=== PATIENT | female | born 1985 | race Caucasian/White ===

== ENCOUNTER 2019-01-29 05:23 | Observation (INO) ==
[2019-01-29] MEDS ORDERED: NORMAL SALINE 1,000 ML IV ONE ×2 (05:57→07:13)
[2019-01-29 06:00] LABS: Hematocrit 40.1 % (37.0-47.0); Hemoglobin 13.8 gm/dL (12.5-16.0); Mean Cell Volume 98.5 fl (78-100); Mean Corpuscular Hemoglobin 33.9 pg (27-31); Mean Corpuscular Hgb Conc 34.4 g/dl (32-36); Mean Platelet Volume 11.5 fl (8-12.5); Neutrophil # 5.6 K/mm3 (1.3-6.0); Neutrophil % 62.9 % (42-75.0); Platelet Count 204 K/mm3 (150-450); Red Blood Count 4.07 M/mm3 (4.2-5.4); Red Cell Distribution Width 12.9 % (11.5-14.0); White Blood Count 8.9 K/mm3 (4.0-10.5)
[2019-01-29 06:01] LABS: Urine Bilirubin Negative (NEGATIVE); Urine Blood Negative /ul (NEGATIVE); Urine Ketone Negative (NEGATIVE); Urine Nitrite Negative (NEGATIVE); Urine Protein Negative (NEGATIVE); Urine Specific Gravity 1.015 SP.GR. (1.005-1.010); Urine Urobilinogen Normal (NORMAL)
[2019-01-29 06:11] LABS: Urine Amorphous Sediment Few - 1+ (NONE-FEW); Urine Appearance Slightly Cloudy (CLEAR); Urine Bacteria None Seen; Urine Color Yellow; Urine RBC None Seen /hpf (0-5); Urine WBC None Seen /hpf (0-5)
[2019-01-29 06:15] LABS: Cocaine Ur Negative (NEGATIVE); Urine Barbiturate Negative (NEGATIVE); Urine Opiates Negative (NEGATIVE); Urine PCP Negative (NEGATIVE); Urine THC Negative (NEGATIVE)
[2019-01-29 06:16] LABS: Albumin * 3.6 gm/dl (3.4-5.0); BUN/Creatinine Ratio 18.3 (9.0-21.6); Bilirubin, Total 0.2 mg/dL (0.0-1.1); Ca. Corrected For Albumin 8.5 mg/dL (8.4-10.2); Calcium * 8.5 mg/dL (7.9-10.9); Carbon Dioxide 25.6 mmol/L (24-32.6); Potassium 3.6 mmol/L (3.4-4.6); Total Protein 6.5 gm/dL (6.2-8.2)
[2019-01-29 06:19] LABS: Urine Benzodiazepines Positive (NEGATIVE)
--- NOTE | 2019-01-29 06:34 | ERNOTE ---
Medical Problem HPI - Narrative Date of Service: 01/29/19 - General Chief Complaint: Drug Overdose Time Seen by Provider: 01/29/19 05:25 Source: patient, family Exam Limitations: clinical condition - Immun/Allergies/Home Medications Immunizations: IMMUNIZATION HX Immunizations Up to Date Yes History of Influenza Vaccine No Hx Pneumococcal Vaccination No Allergies/Adverse Reactions: Allergies banana Allergy (Severe, Verified 01/29/19 05:33) Anaphylaxis venom-honey bee Allergy (Severe, Verified 01/29/19 05:33) Anaphylaxis venom-wasp Allergy (Severe, Verified 01/29/19 05:33) Anaphylaxis latex Allergy (Verified 01/29/19 05:33) Hives Home Medications: HOME MEDICATIONS EPINEPHrine [Epipen 2-Osmani] 0.3 mg IM ONCE PRN #2 dis.syr 08/17/18 [Last Taken Unknown] alprazolam 0.25 mg tablet 0.25 mg PO BID PRN #45 tab 12/05/18 [Last Taken Unknown] mirtazapine 15 mg tablet 15 mg PO HS #30 tab 12/05/18 [Last Taken Unknown] multivitamin 1 tab PO DAILY 12/05/18 [Last Taken Unknown] - History of Present History Narrative: 33-year-old female with a recent past medical history of stage II breast cancer presents for benzodiazepine overdose. Patient took approximately 30 tabs of 0.25 mg Xanax is approximately an hour and half prior to presenting to the emergency department. She had 2 episodes of vomiting after taking the medication. She was brought in by her boyfriend. Initially 911 was called EMS responded and patient was AMA to self transport. Patient stated that she does not have wishes to kill herself but wants her stress to go away. Since taking medication she feels very sleepy. Her boyfriend at bedside states that she has been under increased emotional stress after her recent treatment for breast cancer. Regarding her breast cancer, she states that she was initially treated with chemotherapy unsuccessfully, care plan was transitioned to radiation therapy and then back to chemotherapy. Date (Duration): 01/29/19 Time (Timing): 06:00 Timing: constant Severity: severe Review of Systems - Narrative Narrative: Unobtainable due to patient's condition. Medical History (Last Reviewed 01/29/19 @ 06:02 by Jevon Sanchez MD) Masses of both breasts (Resolved) Onset Date: ~2016 Tobacco abuse Onset Date: 07/14/15 Placental abruption, with delivery Onset Date: 2005 resulting in classical emergency section delivery Onset Date: 2005 Surgical History: Surgical History (Last Reviewed 01/29/19 @ 06:02 by Jevon Sanchez MD) H/O breast surgery Onset Date: ~2016 mass on each breast removed Previous section Onset Date: 2005 x5 Family History: Family History (Last Reviewed 01/29/19 @ 06:02 by Jevon Sanchez MD) Daughter , 18 months old Sudden infant syndrome (SIDS) Social History: (Last Reviewed 01/29/19 @ 06:02 by Jevon Sanchez MD) Social History: Marital status: household members: children number of children: 5 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 Highest education level completed: some college, no degree Service: No Tobacco: Smoking Status: Current every day smoker tobacco type: cigarettes Smoking cigarettes per day: 10.0 Smoking packs per day: 0.5 Alcohol: alcohol intake: current Substance Use: substance use type: does not use Dietary Habits: caffeine: Yes Exercise: Physical activity type: none Personal Safety: victim of physical abuse: No victim of emotional abuse: No victim of sexual abuse: No Physical Exam - Physical Exam General Appearance: Present: lethargic Head Exam: Present: normal inspection Eye Exam: PERRL: bilateral Ears, Nose, Throat: Present: normal ENT inspection Neck: Present: nontender Respiratory: Present: no respiratory distress, normal breath sounds, chest nontender, lungs clear Cardiovascular/Chest: Present: regular rate, rhythm, no murmur Gastrointestinal/Abdominal: Present: normal bowel sounds, nontender Rectal Exam: Present: deferred Pelvic Exam: Present: deferred Extremity Exam: Present: normal inspection Neurological Exam: Present: other - Lethargic Skin Exam: Present: normal color, warm/dry Progress - Results and Orders Patient's Lab Results:: I have reviewed the patient's lab results. - Vital Signs Patient's Vital Signs:: I have reviewed the patient's vital signs. Vital Signs: Vital Signs 01/29/19 05:29 Temperature 36.7 C Pulse Rate 84 Respiratory Rate 16 Blood Pressure 109/72 O2 Sat by Pulse Oximetry 98 - Progress/Reassessment Chief Complaint: Drug Overdose Progress:: Unchanged - Transfer of Care Expected Disposition: Admit Plan - Plan Plan: 33-year-old female presents status post benzodiazepine overdose with Xanax. Patient consumed approximately 7.5 mg of Xanax approximately an hour and a half prior to arrival. She did end up vomiting and unknown quantity after ingesting this. Patient denies active suicidal ideations however given her concerning actions she will need to be evaluated further by mental health when she is medically stable. She is currently protecting her airway is hemodynamically stable. Poison control was consulted by balance staff inspector. IV fluids were started, 500 cc normal saline bolus followed by 125 cc/h. Patient placed on observation unit for further monitoring for resolution of her symptoms. Departure Clinical Impression: Drug overdose, intentional Qualifiers: Encounter type: initial encounter Qualified Code(s): T50.902A - Poisoning by unspecified drugs, medicaments and biological substances, intentional self-harm, initial encounter - Departure Disposition: Still a patient Condition: Stable Referrals: Rosaura Hemphill MD [Primary Care Provider] -
[2019-01-29] MEDS ORDERED: FLUMAZENIL 0.1 MG/ML VIAL IV ONE ×3 (10:56→12:40)
[2019-01-29] MEDS ORDERED: NORMAL SALINE 1,000 ML IV PRN (11:07)
[2019-01-29] MEDS ORDERED: NICOTINE 21 MG PATC TD SCH (11:15)
--- NOTE | 2019-01-29 11:26 | HP ---
Chief Complaint - Chief Complaint Date of Service: 01/29/19 Time of Service: 11:11 Chief Complaint: I took many Xanax because of stress but I am not suicidal History of Present Illness: 33-year-old female with past medical history of depression, nicotine dependence, active smoker, anxiety disorder, and breast cancer was evaluated in the ER after she was brought in by EMS after the patient took a significant amount of her Xanax. Patient boyfriend reports that is possible that she took between 30 and 40 pills, but he is not sure. He says all he knows is she brought him an empty pill bottle that previously had more than 30 pills and said that she took all of them. The boyfriend then made her go to the bathroom and induce vomiting by sticking her finger down her throat, patient did vomit and the boyfriend noticed white substances which most likely was the dissolved pills however he was still concerned so he called 911. Prior to this the boyfriend reports that the patient has been increasingly depressed because she is been dealing with a lot of stressors in her life, one being an infant that of SIDS and a diagnosis of bilateral breast cancer that failed to chemo and is now being treated with radiation. He he says that he does not think that she is suicidal or would ever take her life, she has just been under a lot of stress. When patient arrived at the ER she was heavily sedated but maintaining her airway and stable vitals. The physician on-call was consulted and decision to admit the patient for observation in our special care unit was made. Before this event patient denies being dependent on Xanax, in fact she says the last time she took managed was more than 2 weeks ago and before that she really took it. Medical History (Last Reviewed 01/29/19 @ 08:12 by Saud Mckeon RN) Masses of both breasts (Resolved) Onset Date: ~2016 Tobacco abuse Onset Date: 07/14/15 Placental abruption, with delivery Onset Date: 2005 resulting in classical emergency section delivery Onset Date: 2005 Surgical History: Surgical History (Last Reviewed 01/29/19 @ 08:12 by Saud Mckeon RN) H/O breast surgery Onset Date: ~2016 mass on each breast removed Previous section Onset Date: 2005 x5 Family History: Family History (Last Reviewed 01/29/19 @ 08:12 by Saud Mckeon RN) Daughter , 18 months old Sudden syndrome (SIDS) Social History: (Last Reviewed 01/29/19 @ 08:12 by Saud Mckeon RN) Social History: Marital status: household members: children number of children: 5 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 Highest education level completed: some college, no degree Service: No Tobacco: Smoking Status: Current every day smoker tobacco type: cigarettes Smoking cigarettes per day: 10.0 Smoking packs per day: 0.5 Alcohol: alcohol intake: current Substance Use: substance use type: does not use Dietary Habits: caffeine: Yes Exercise: Physical activity type: none Personal Safety: victim of physical abuse: No victim of emotional abuse: No victim of sexual abuse: No Peds Patient Hx - Developmental: No Pertinent Hx Peds Patient Hx - Medical: No Pertinent Hx Peds Patient Hx - Cardiac/Respiratory: No Pertinent Hx Peds Patient Hx - Surgical: No Surgical History Patient History - Cancer: No Hx of Cancer Review Of Systems (GEN) - Review of Systems Generalized/Overall Review: Present: Weakness EENTM: Present: No Symptoms Reported Respiratory: Present: No Symptoms Reported Cardiac: Present: No Symptoms Reported Abdominal: Present: No Symptoms Reported Genitourinary: Present: No Symptoms Reported Musculoskeletal: Present: No Symptoms Reported Neurological: Present: Depressed Skin: Present: No Symptoms Reported Endocrine: Present: No Symptoms Reported Immunizations: IMMUNIZATION HX Immunizations Up to Date Yes History of Influenza Vaccine No Hx Pneumococcal Vaccination No Allergies/Adverse Reactions: Allergies Allergy/AdvReac Type Severity Reaction Status Date / Time banana Allergy Severe Anaphylaxis Verified 01/29/19 05:33 venom-honey bee Allergy Severe Anaphylaxis Verified 01/29/19 05:33 venom-wasp Allergy Severe Anaphylaxis Verified 01/29/19 05:33 latex Allergy Hives Verified 01/29/19 05:33 Home Medications: HOME MEDICATIONS EPINEPHrine [Epipen 2-Osmani] 0.3 mg IM ONCE PRN #2 dis.syr 08/17/18 [Last Taken Unknown] alprazolam 0.25 mg tablet 0.25 mg PO BID PRN #45 tab 12/05/18 [Last Taken Unknown] mirtazapine 15 mg tablet 15 mg PO HS #30 tab 12/05/18 [Last Taken Unknown] multivitamin 1 each PO DAILY 12/05/18 [Last Taken Unknown] Exam - Exam Vital Signs: Vital Signs - Last Taken Temp 36.2 C 01/29/19 10:24 Pulse 65 01/29/19 10:24 Resp 14 01/29/19 10:24 BP 87/42 L 01/29/19 10:24 Pulse Ox 100 01/29/19 10:24 Constitutional: Present: Alert, Oriented x3, Cooperative, Well developed, Well nourished, No distress, Somnolent, Thin and frail ENT Exam: Present: normal ENT inspection, hearing grossly normal, pharynx normal, TMs normal Eye Exam: bilateral eye: normal inspection, PERRL, EOMI Neck: Present: non-tender, full range of motion, supple, normal inspection, trachea midline Back Exam: Present: normal inspection, no CVA tenderness, no vertebral tenderness Breasts: Present: Exam deferred Respiratory: Present: chest non-tender, lungs clear, normal breath sounds, no respiratory distress, no accessory muscle use Cardiovascular/Chest: Present: normal peripheral pulses, regular rate, rhythm, no chest tenderness, no edema, no gallop, no JVD, no murmur, no rub Peripheral Pulses: carotid (R): 4+, carotid (L): 4+, femoral (R): 4+, femoral (L): 4+, dorsalis-pedis (R): 4+, dorsalis-pedis (L): 4+, radial (R): 4+, radial (L): 4+ Abdomen: Present: Normal bowel sounds, soft, nontender, nondistended, no rebound tenderness, no hepatospenomegaly, no masses /Rectal: Present: Exam deferred Extremity: Present: normal range of motion, non-tender, normal inspection, no pedal edema, no calf tenderness, normal capillary refill Skin Exam: Present: normal color, warm/dry, no cyanosis Lymphatic: Present: no adenopathy Neurologic: Present: service writer II-XII nml as tested, normal cerebellar test, no mo tor/sensory deficits, alert, normal mood/affect, oriented x 3 Appearance: Present: appropriate appearance, appropriate insight, neat, no memory impairment Eye contact: Present: cooperative, good eye contact, normal speech Thoughts: Present: normal thought pattern Diagnostic Studies: Abnormal Lab Results 01/29/19 01/29/19 01/29/19 Range/Units 05:55 05:55 05:55 RBC 4.07 L (4.2-5.4) M/mm3 MCH 33.9 H (27-31) pg Immature Gran # (Auto) 0.04 H (0.000-0.0310) K/mm3 Anion Gap 14.0 H (6.8-13.8) mmol/L ALT 8 L (19-67) U/L U Benzodiazepines Scrn Positive H (NEGATIVE) Laboratory Results WBC 8.9 K/mm3 (4.0-10.5) 01/29/19 05:55 RBC 4.07 M/mm3 (4.2-5.4) L 01/29/19 05:55 Hgb 13.8 gm/dL (12.5-16.0) 01/29/19 05:55 Hct 40.1 % (37.0-47.0) 01/29/19 05:55 MCV 98.5 fl (78-100) 01/29/19 05:55 MCH 33.9 pg (27-31) H 01/29/19 05:55 MCHC 34.4 g/dl (32-36) 01/29/19 05:55 RDW 12.9 % (11.5-14.0) 01/29/19 05:55 Plt Count 204 K/mm3 (150-450) 01/29/19 05:55 MPV 11.5 fl (8-12.5) 01/29/19 05:55 Immature Gran % (Auto) 0.40 % (0.001-0.429) 01/29/19 05:55 Immature Gran # (Auto) 0.04 K/mm3 (0.000-0.0310) H 01/29/19 05:55 Neutrophils % 62.9 % (42-75.0) 01/29/19 05:55 Lymphocytes % 26.4 % (20-51) 01/29/19 05:55 Monocytes % 7.9 % (0.0-9) 01/29/19 05:55 Eosinophils % 2.1 % (0.0-3.0) 01/29/19 05:55 Basophils % 0.3 % (0.0-1.0) 01/29/19 05:55 Nucleated RBC % 0.0 k/mm3 (0-1) 01/29/19 05:55 Neutrophils # 5.6 K/mm3 (1.3-6.0) 01/29/19 05:55 Lymphocytes # 2.35 k/mm3 (1.5-3.5) 01/29/19 05:55 Monocytes # 0.7 k/mm3 (0.0-1.0) 01/29/19 05:55 Eosinophils # 0.2 k/mm3 (0.0-0.7) 01/29/19 05:55 Absolute Basophils 0.0 k/mm3 (0.0-0.1) 01/29/19 05:55 Sodium 140 mmol/L (132-142) 01/29/19 05:55 Plasma Sodium 140 mmol/L (130-142) 01/29/19 05:55 Potassium 3.6 mmol/L (3.4-4.6) 01/29/19 05:55 Chloride 104 mmol/L (97-106) 01/29/19 05:55 Carbon Dioxide 25.6 mmol/L (24-32.6) 01/29/19 05:55 Anion Gap 14.0 mmol/L (6.8-13.8) H 01/29/19 05:55 BUN 11 mg/dL (3-23) 01/29/19 05:55 Creatinine 0.60 mg/dL (0.4-1.4) 01/29/19 05:55 Est GFR (Non-Af Amer) 121 mL/min (60-130) 01/29/19 05:55 BUN/Creatinine Ratio 18.3 (9.0-21.6) 01/29/19 05:55 Random Glucose 101 mg/dL (70-110) 01/29/19 05:55 Calcium 8.5 mg/dL (7.9-10.9) 01/29/19 05:55 Calcium Adj for Albumin 8.5 mg/dL (8.4-10.2) 01/29/19 05:55 Total Bilirubin 0.2 mg/dL (0.0-1.1) 01/29/19 05:55 AST 13 U/L (0-48) 01/29/19 05:55 ALT 8 U/L (19-67) L 01/29/19 05:55 Alkaline Phosphatase 54 U/L (50-170) 01/29/19 05:55 Total Protein 6.5 gm/dL (6.2-8.2) 01/29/19 05:55 Albumin 3.6 gm/dl (3.4-5.0) 01/29/19 05:55 Urine Color Yellow 01/29/19 05:55 Urine Appearance Slightly cloudy (CLEAR) 01/29/19 05:55 Urine pH 6.0 pH (5.0-7.0) 01/29/19 05:55 Ur Specific [place] 1.015 SP.GR. (1.005-1.010) 01/29/19 05:55 Urine Protein Negative mg/dL (NEGATIVE) 01/29/19 05:55 Urine Glucose (UA) Negative mg/dL (NEGATIVE) 01/29/19 05:55 Urine Ketones Negative mg/dL (NEGATIVE) 01/29/19 05:55 Urine Blood Negative /ul (NEGATIVE) 01/29/19 05:55 Urine Nitrate Negative (NEGATIVE) 01/29/19 05:55 Urine Bilirubin Negative mg/dl (NEGATIVE) 01/29/19 05:55 Urine Urobilinogen Normal EU/dl (NORMAL) 01/29/19 05:55 Ur Leukocyte Esterase Negative /ul (NEGATIVE) 01/29/19 05:55 Urine RBC None seen /hpf (0-5) 01/29/19 05:55 Urine WBC None seen /hpf (0-5) 01/29/19 05:55 Ur Epithelial Cells Trace /hpf (0-5) 01/29/19 05:55 Amorphous Sediment Few - 1+ (NONE-FEW) 01/29/19 05:55 Urine Bacteria None seen (NONE) 01/29/19 05:55 Urine Culture Comments Culture to follow 01/29/19 05:55 Urine Opiates Screen Negative (NEGATIVE) 01/29/19 05:55 Barbiturate Screen Negative (NEGATIVE) 01/29/19 05:55 Ur Phencyclidine Scrn Negative (NEGATIVE) 01/29/19 05:55 Urine Amphetamine Negative (NEGATIVE) 01/29/19 05:55 U Benzodiazepines Scrn Positive (NEGATIVE) H 01/29/19 05:55 Urine Cocaine Screen Negative (NEGATIVE) 01/29/19 05:55 Urine Marijuana (THC) Negative (NEGATIVE) 01/29/19 05:55 Assessment/Plan - Narrative Narrative: Patient was evaluated at bedside while in the ICU and was found to be fully awake although sleepy or lethargic. She is oriented x3 and recalls the event very vividly. Upon questioning she says she only took the pills because of all the stress that she has been dealing with but she is not suicidal. She does however admit to being depressed and is currently under treatment for depression, patient is very well-known at our mental health clinic here at [facility]. Patient does not appear to be suicidal in my opinion, however as a precaution her to health provider has been consulted for psych evaluation. In the meantime we will treat patient with flumazenil to reverse any residual effect of the benzodiazepine, and treat her with IV boluses to sharp her blood pressure. We will also initiate a regular diet now that the patient is awake, will monitor closely to see if she tolerates oral intake. Patient currently has hypotension, her last MAP was 56 so IV bolus was ordered, and additional IV bolus was ordered on a as needed basis. We will follow-up with recommendations from the mental health provider in order to decide how to proceed. - Assessment/Plan (1) Drug overdose, intentional Problem: Acute Qualifiers: Encounter type: initial encounter Qualified Code(s): T50.902A - Poisoning by unspecified drugs, medicaments and biological substances, intentional self- harm, initial encounter (2) Benzodiazepine (tranquilizer) overdose Problem: Acute (3) Depression Problem: Chronic Qualifiers: Depression Type: major depressive disorder Active/Remission status: currently active Major depression episode severity: severe Psychotic features: without psychotic features
[2019-01-29 13:09] LABS: Hematocrit 37.1 % (37.0-47.0); Hemoglobin 12.9 gm/dL (12.5-16.0); Mean Cell Volume 99.2 fl (78-100); Mean Corpuscular Hemoglobin 34.5 pg (27-31); Mean Corpuscular Hgb Conc 34.8 g/dl (32-36); Mean Platelet Volume 11.4 fl (8-12.5); Neutrophil # 3.8 K/mm3 (1.3-6.0); Neutrophil % 58.6 % (42-75.0); Platelet Count 192 K/mm3 (150-450); Red Blood Count 3.74 M/mm3 (4.2-5.4); Red Cell Distribution Width 13.1 % (11.5-14.0); White Blood Count 6.5 K/mm3 (4.0-10.5)
[2019-01-29 13:40] LABS: Acetaminophen * 0.2 mcg/mL (10.0-30.0)
--- NOTE | 2019-01-29 14:30 | DS ---
(1) Drug overdose, intentional Problem: Ruled-out Qualifiers: Encounter type: initial encounter Qualified Code(s): T50.902A - Poisoning by unspecified drugs, medicaments and biological substances, intentional self- harm, initial encounter (2) Benzodiazepine (tranquilizer) overdose Problem: Acute (3) Depression Problem: Chronic Qualifiers: Depression Type: major depressive disorder Active/Remission status: currently active Major depression episode severity: severe Psychotic features: without psychotic features Date of Discharge:: 01/29/19 Description of Stay: 33-year-old female was admitted to at our special care unit here at [facility] due to an overdose with benzodiazepines. Patient was placed in the SCU and was placed on cardiac exercise specialist for monitoring of her vitals and for evaluation for suicidality. Patient was evaluated by the mental health specialist who happens to be her provider and was cleared for discharge after it was ruled out that she was suicidal. Patient continues to reiterate that she d id not intend to take her life and has not been feeling suicidal only emotionally stressed and traumatized by recent events in her life. Labs were repeated and are negative for any concerns, poison control recommended running a test and Tylenol and alcohol levels but they were all negative. Patient was also treated with flumazenil to reverse the effects of the benzodiazepine and is now fully awake and requesting to go home. She maintains stable vitals and has been deemed fit to be discharged home. Therefore we will discharge her with instructions to follow-up with her PCP in 1 week. Procedures Performed: none Results and Findings: Lab Pending Results 01/29/19 05:55: WBC 8.9, RBC 4.07 L, Hgb 13.8, Hct 40.1, MCV 98.5, MCH 33.9 H, MCHC 34.4, RDW 12.9, Plt Count 204, MPV 11.5, Immature Gran % (Auto) 0.40, Immature Gran # (Auto) 0.04 H, Neutrophils % 62.9, Lymphocytes % 26.4, Monocytes % 7.9, Eosinophils % 2.1, Basophils % 0.3, Nucleated RBC % 0.0, Neutrophils # 5.6, Lymphocytes # 2.35, Monocytes # 0.7, Eosinophils # 0.2, Absolute Basophils 0.0 01/29/19 05:55: Sodium 140, Plasma Sodium 140, Potassium 3.6, Chloride 104, Carbon Dioxide 25.6, Anion Gap 14.0 H, BUN 11, Creatinine 0.60, Est GFR (Non-Af Amer) 121, BUN/Creatinine Ratio 18.3, Random Glucose 101, Calcium 8.5, Calcium Adj for Albumin 8.5, Total Bilirubin 0.2, AST 13, ALT 8 L, Alkaline Phosphatase 54, Total Protein 6.5, Albumin 3.6 01/29/19 05:55: Urine Color Yellow, Urine Appearance Slightly cloudy, Urine pH 6.0, Ur Specific [place] 1.015, Urine Protein Negative, Urine Glucose (UA) Negative, Urine Ketones Negative, Urine Blood Negative, Urine Nitrate Negative, Urine Bilirubin Negative, Urine Urobilinogen Normal, Ur Leukocyte Esterase Negative, Urine RBC None seen, Urine WBC None seen, Ur Epithelial Cells Trace, Amorphous Sediment Few - 1+, Urine Bacteria None seen, Urine Culture Comments Culture to follow 01/29/19 05:55: Urine Opiates Screen Negative, Barbiturate Screen Negative, Ur Phencyclidine Scrn Negative, Urine Amphetamine Negative, U Benzodiazepines Scrn Positive H, Urine Cocaine Screen Negative, Urine Marijuana (THC) Negative 01/29/19 13:06: WBC 6.5 D, RBC 3.74 L, Hgb 12.9, Hct 37.1, MCV 99.2, MCH 34.5 H, MCHC 34.8, RDW 13.1, Plt Count 192, MPV 11.4, Immature Gran % (Auto) 0.30, Immature Gran # (Auto) 0.02, Neutrophils % 58.6, Lymphocytes % 30.2, Monocytes % 7.2, Eosinophils % 3.1 H, Basophils % 0.6, Nucleated RBC % 0.0, Neutrophils # 3.8, Lymphocytes # 1.96, Monocytes # 0.5, Eosinophils # 0.2, Absolute Basophils 0.0 01/29/19 13:06: Acetaminophen 0.2 L, Ethyl Alcohol 3.0 01/29/19 13:06: Serum HCG, Qual Negative Discharge Location: Home Disposition: Home self-care Condition: Stable Face to Face Encounter completed per CMS Guidelines: No Discharge Activity: Activity as tolerated Discharge Diet: General/regular food Referrals: Rosaura Hemphill MD [Primary Care Provider] - Laura Baron ARNP [Line Camera Operator] - Prescriptions (Any new or edited meds): Hydroxyzine HCl 50 mg PO Q6H PRN #30 tab PRN Reason: Anxiety Transmission Status: Pending to [facility], [place], [place] Complete Home Medications List: Complete Home Medication List: EPINEPHrine [Epipen 2-Osmani] 0.3 mg IM ONCE PRN #2 dis.syr 08/17/18 mirtazapine 15 mg tablet 15 mg PO HS #30 tab 12/05/18 multivitamin 1 each PO DAILY 12/05/18 Hydroxyzine HCl 50 mg PO Q6H PRN #30 tab 01/29/19
--- NOTE | 2019-01-29 14:36 | CONS ---
[facility] - General Date of Service: 01/29/19 Narrative: Jose is a 33 year old female with a history of major depressive disorder with anxious distress and insomnia who was admitted to [facility] after overdosing on Xanax. Jose states she and her boyfriend got into an argument and she was feeling very overwhelmed and just wanted to sleep for a little while so she took several Xanax. She notes she told her boyfriend immediately afterward that she took the Xanax and she did induce vomiting then came to the emergency department. She states she was not attempting to commit suicide when she took the Xanax. She states she has been taking mirtazapine until the last few days and she stopped taking it because the 15mg dose was making her feel sleepy the next day. She feels anxious at times and notes she typically takes Xanax 2 or 3 times per week and it does help with anxiety. She is sleeping well at night most nights. Her appetite is good. She denies illicit substance use or alcohol consumption. Jose denies suicidal ideation or homicidal ideation currently. She states she does not want to commit suicide and does not have a plan to commit suicide. Jose states she is planning on staying at her brother's house after discharge. Jose states she has been attending counseling every two weeks at [facility] and that has been going well. Source: patient, RN/MD, RN notes reviewed - History of Present Illness Allergies/Adverse Reactions: Allergies banana Allergy (Severe, Verified 01/29/19 05:33) Anaphylaxis venom-honey bee Allergy (Severe, Verified 01/29/19 05:33) Anaphylaxis venom-wasp Allergy (Severe, Verified 01/29/19 05:33) Anaphylaxis latex Allergy (Verified 01/29/19 05:33) Hives Home Medications: Home Medications Medication Instructions Recorded Last Taken EPINEPHrine [Epipen 2-Osmani] 0.3 mg IM ONCE PRN #2 dis.syr 08/17/18 Unknown mirtazapine 15 mg tablet 15 mg PO HS #30 tab 12/05/18 Unknown multivitamin 1 each PO DAILY 12/05/18 Unknown Hydroxyzine HCl 50 mg PO Q6H PRN #30 tab 01/29/19 Unknown Procedures Drainage of Amniotic Fluid, Therapeutic from Products of Conception, Via Natural or Artificial Opening (09/26/15) Extraction of Products of Conception, Low Cervical, Open Approach (09/26/15) Monitoring of Products of Conception, Cardiac Rate, External Approach (09/26/15) Medications - Medications Current Medications: Current Medications Sodium Chloride (Sodium Chloride 0.9%) 1,000 mls @ 125 mls/hr IV .Q8H ONE Stop: 01/29/19 15:12 Last Infusion: 01/29/19 11:45 Dose: Infused Documented by: Review of Systems - Review of Systems Generalized/Overall Review: Present: No Symptoms Reported Physical Examination - Exam Vital Signs: Vital Signs - Last Taken Temp 36.2 C 01/29/19 10:24 Pulse 86 01/29/19 13:40 Resp 16 01/29/19 13:40 BP 101/78 01/29/19 13:40 Pulse Ox 97 01/29/19 13:40 O2 Oxygen Delivery Method Room Air Comprehensive Narative: Visit lasts approximately 20 minutes. Constitutional: Present: Oriented x3, Cooperative, Other - drowsy but alert Neurologic: Present: normal mood/affect, oriented x 3 Appearance: Present: appropriate appearance Eye contact: Present: cooperative, good eye contact, normal speech Thoughts: Present: normal thought pattern, no apparent hallucination - Results and Findings: Narrative: From psychiatry standpoint, patient is able to be discharged to home once medically cleared. Will decrease mirtazapine to 7.5mg PO QHS as patient reports drowsiness with 15mg dose. Patient is to follow up with this author on 02/04/19. Provided patient with [facility] emergency number and she verbalizes understanding and agreement. Patient is to continue counseling. Isabela rodríguez agrees to call [facility], call [facility] emergency number, call 911, or go to the nearest emergency department if patient experiences suicidal ideation. Lab/Microbiology results last 24 hrs: Abnormal/Pending Laboratory Last 24 HRS 01/29/19 01/29/19 01/29/19 13:06 13:06 05:55 RBC 3.74 L MCH 34.5 H Immature Gran # (Auto) Eosinophils % 3.1 H Anion Gap ALT Acetaminophen 0.2 L U Benzodiazepines Scrn Positive H 01/29/19 01/29/19 05:55 05:55 RBC 4.07 L MCH 33.9 H Immature Gran # (Auto) 0.04 H Eosinophils % Anion Gap 14.0 H ALT 8 L Acetaminophen U Benzodiazepines Scrn
[2019-01-29 14:46] VITALS: BP 102/69
[2019-01-29] MEDS ORDERED: MIRTAZAPINE 15 MG TABLET PO SCH ×2 (21:00)
[2019-01-30] MEDS ORDERED: MULTIVITAMINS 1 CAP CAPSULE PO SCH (09:00)
== END 2019-01-29 14:55 | disposition home or self-care (01) ==
LOC: SCU 05:23 → ER 05:23 → SCU 08:00
PROVIDERS: ADMIT Family Medicine; ATTEND Family Medicine
CPT/HCPCS: 36415; 51701; 80053; 80307; 80320; 80329; 81001; 82693; 84703; 85025; 87086; 93005; 96374; 96375; 99285; G0480; G0481